=== PATIENT | male | born 1975 | race African-American/Black ===

== ENCOUNTER 2020-11-21 12:18 | Emergency (ER) | payer OTHER ==
[2020-11-21 12:25] VITALS: BP 111/66; PULSE 98; TEMP 98; BMI 23.7
[2020-11-21] MEDS ORDERED: CYCLOBENZAPRINE HCL 10 MG TABLET (FP) PO ONE (12:58)
[2020-11-21] MEDS ORDERED: KETOROLAC TROMETHAMINE 30 MG/1 ML VIAL IM ONE (12:58)
[2020-11-21] MEDS ORDERED: CYCLOBENZAPRINE HCL 10 MG TABLET (FP) ONE (13:14)
[2020-11-21] MEDS ORDERED: KETOROLAC TROMETHAMINE 30 MG/1 ML VIAL ONE (13:14)
[2020-11-21] MEDS ORDERED: IBUPROFEN 600 MG TABLET (FP) PO ONE ×2 (13:32→13:40)
== END 2020-11-21 14:23 | disposition home or self-care (01) ==
LOC: JERFT 12:18
PROC: 3E0233Z Introduction of Anti-inflammatory into Muscle, Percutaneous Approach (ICD-10-PCS; principal; 2020-11-21)
DX: S92.514A Nondisplaced fracture of proximal phalanx of right lesser toe(s), initial encounter for closed fracture (principal); R51.9 Headache, unspecified; S16.1XXA Strain of muscle, fascia and tendon at neck level, initial encounter; V43.12XA Car passenger injured in collision with other type car in nontraffic accident, initial encounter
CPT/HCPCS: 72040-TC; 72070-TC-FY; 73630-TC-RT-FY; 99285-25